=== PATIENT | female | born 1990 | race Caucasian/White ===

== ENCOUNTER 2017-09-02 00:44 | Emergency (ER) | payer SELFPAY ==
--- NOTE | 2017-09-02 08:40 | RAD ---
LEFT WRIST 4 VIEWS: Date: 09/02/17 HISTORY: Left wrist pain, injury while bowling a couple of weeks ago. FINDINGS/IMPRESSION: No acute fracture or dislocation is identified. If there is high clinical suspicion for a fracture or injury to the tendons, ligaments, or cartilage , further evaluation with MRI would be helpful. POS: OFF
== END 2017-09-02 02:13 | disposition home or self-care (01) ==
LOC: ERS 00:44
DX: M25.532 Pain in left wrist (principal); J45.909 Unspecified asthma, uncomplicated; F31.9 Bipolar disorder, unspecified; F41.9 Anxiety disorder, unspecified; F17.210 Nicotine dependence, cigarettes, uncomplicated

== ENCOUNTER 2022-08-08 14:42 | Emergency (ER) | payer SELFPAY ==
[~2022-08-08 14:42] MED LIST: Iopamidol-370 76% 500 ML 1 ML ONE
[2022-08-08] MEDS ORDERED: Ketorolac Tromethamine 30 MG/ML VIAL ONE (15:39)
[2022-08-08 15:57] LABS: #Basophils 0.1 thou/uL (0.0-0.2); #Eosinphils 0.1 thou/uL (0.0-0.7); #Lymphocytes 2.5 thou/uL (1.20-3.40); #Neutrophils 6.6 thou/uL (1.40-6.50); %Basophils 0.6 % (0.0-1.0); %Eosinophils 0.9 % (0.0-10.0); %Lymphocytes 24.4 % (21.0-51.0); %Neutrophils 64.1 % (42.0-75.0); Mean Corpuscular HGB CONC 32.9 g/dL (32.0-36.0); Mean Corpuscular Volume 88.1 fL (78.0-98.0); Mean Platelet Volume 7.6 fL (7.4-10.4); Platelet Count 219 thou/uL (130-400); RBC Distribution Width 12.7 % (11.5-14.5); Red Blood Cell (RBC) Count 4.14 mill/uL (4.20-5.40); White Blood Cell (WBC) Count 10.4 thou/uL (4.8-10.8)
[2022-08-08 16:09] LABS: BHCG - Serum Negative (NEGATIVE); Pregs Control Background? CLEAR/WHITE (CLR/WHITE); Pregs Control Bar Appear? YES (CONTROL BAR)
[2022-08-08 16:17] LABS: Anion Gap 11 mmol/L (10-20); BUN (Urea Nitrogen) 12 mg/dL (7.0-18.7); Calc. Creatinine Clearance 0 mL/min (70-130); Carbon Dioxide 22 mmol/L (22-29); Chloride 108 mmol/L (98-107); Estimated GFR 107; Glucose 88 mg/dL (70-105); Potassium 4.2 mmol/L (3.5-5.1); Sodium 137 mmol/L (136-145)
[2022-08-08] MEDS ORDERED: Gabapentin 100 MG CAP PO SCH (17:30)
== END 2022-08-08 17:49 | disposition home or self-care (01) ==
LOC: ERS 14:42
DX: R51.9 Headache, unspecified (principal); F17.210 Nicotine dependence, cigarettes, uncomplicated; R20.2 Paresthesia of skin; H53.8 Other visual disturbances
CPT/HCPCS: 70487; 80048; 84703; 85025; 96374; J1885; Q9967